=== PATIENT | female | born 1960 | race African-American/Black ===

== ENCOUNTER 2018-10-25 19:10 | Emergency (ER) | payer OTHER ==
[2018-10-25 19:38] VITALS: BP 149/85; PULSE 95; TEMP 99; BMI 35.9
--- NOTE | 2018-10-25 19:40 | PDOC ---
Rapid Medical Evaluation Chief Complaint: Chest Pain Time Seen by Provider: 10/25/18 19:32 Medical Evaluation: Allergies Allergy/AdvReac Type Severity Reaction Status Date / Time No Known Allergies Allergy Verified 12/25/14 16:07 10/25/18 19:35I have performed a brief in-person evaluation of this patient. The patient presents with a chief complaint of: Cp/ worse with cough, Phlegm/ yellow thick- some relief with Robutussin . Pertinent physical exam findings: pale/ moist cough/ HIV- with no detected viral load I have ordered the following: CXR The patient will proceed to the ED for further evaluation. 10/25/18 19:41 Discharge Disposition - Diagnosis Cough - Referrals - Patient Instructions - Post Discharge Activity
--- NOTE | 2018-10-25 20:19 | PDOC ---
History of Present Illness - General Chief Complaint: Chest Pain Stated Complaint: CHEST PAIN Time Seen by Provider: 10/25/18 19:32 History Source: Patient Exam Limitations: No Limitations - History of Present Illness Initial Comments: 58 yo F w a pmh of HIV - on HAART undetectable viral load, normal CD4 count, HTN , and HCL presents to the ER with 3 days of a cough which was originally dry but turned productive. The patient endorses 3 episodes of the chills today. The patient states that when she coughs her right chest and lower back hurts. She states she has also been experiencing occasional shortness of breath and some increased difficulty breathing. The patient denies any nausea, vomiting, diaphoresis, chest pain worsened by physical activity, or recent fevers. PCP: Kandi Cohn PSH: None reported Allergies: NKA, NKDA Social Hx: Denies smoking, drinking, or other substance usage. Past History - Past Medical History Allergies/Adverse Reactions: Allergies Allergy/AdvReac Type Severity Reaction Status Date / Time No Known Allergies Allergy Verified 10/25/18 19:38 Home Medications: Ambulatory Orders Abacavir/Dolutegravir/Lamivudi [Triumeq 600-50-300 mg Tablet] 1 each PO DAILY # 30 tablet 10/16/18 Aspirin [Aspirin EC] 1 tab PO DAILY #30 tablet. 10/16/18 Atorvastatin Ca [Lipitor] 1 tab PO DAILY #30 tablet 10/16/18 Blood Pressure Test Kit [Blood Pressure Kit] 1 each ASDIR #1 kit 10/16/18 Gabapentin [Neurontin -] 1 tab PO HS #30 capsule 10/16/18 Multivitamin,Therapeutic [Thera] 1 each PO DAILY #30 tablet 10/16/18 [place]-3 Fatty Acids [[place]-3] 1,000 mg PO BID #60 capsule 10/16/18 Ranitidine [Zantac -] 150 mg PO DAILY PRN #30 tablet MDD 1 10/16/18 Tenofovir Disoproxil Fumarate [Viread -] 300 mg PO DAILY #30 tablet 10/16/18 Triamcinolone 0.1% Ointment [Aristocort 0.1% Ointment -] 1 applic TP BID #1 tube 10/16/18 Valacyclovir HCl [Valtrex -] 500 mg PO BID #10 tablet 10/16/18 Cholecalciferol (Vitamin D3) [D3-50] 1 cap PO WEEKLY #4 capsule 10/18/18 Ibuprofen 1 tab PO BID PRN #30 tablet MDD 2 10/18/18 Guaifenesin Dm [Robitussin Dm -] 10 ml PO Q6H #1 bottle 10/23/18 Anemia: Yes Asthma: No Cancer: No Cardiac Disorders: No CVA: No COPD: No CHF: No Dementia: No Diabetes: No GI Disorders: No Disorders: Yes (genital herpes) HTN: No Hypercholesterolemia: No Liver Disease: No Seizures: No Thyroid Disease: No - Suicide/Smoking/Psychosocial Hx Smoking History: Never smoked Have you smoked in the past 12 months: No Cigars Per Day: 0 Information on smoking cessation initiated: No Hx Alcohol Use: No Drug/Substance Use Hx: No Substance Use Type: None Hx Substance Use Treatment: No Review of Systems - Review of Systems Able to Perform ROS?: Yes Comments:: CONSTITUTIONAL: Present: chills Absent: fever, no fatigue EYES: Absent: visual changes ENT: Absent: ear pain, no sore throat CARDIOVASCULAR: Present: Chest pain Absent: no palpitations RESPIRATORY: Present: cough, no SOB GI: Absent: abdominal pain, no nausea, no vomiting, no constipation, no diarrhea GENITOURINARY: Absent: dysuria, no frequency, no hematuria MUSKULOSKELETAL: Absent: back pain, no arthralgia, no myalgia SKIN: Absent: rash NEURO: Absent: headache *Physical Exam - Vital Signs Last Vital Signs Temp Pulse Resp BP Pulse Ox 99 F 95 H 18 149/85 100 10/25/18 19:34 10/25/18 19:34 10/25/18 19:34 10/25/18 19:34 10/25/18 19:34 - Physical Exam Comments: GENERAL: Well-appearing, well-nourished. No apparent distress. HEENT: Normocephalic, atraumatic. PERRL, EOM intact. CARDIOVASCULAR: Normal S1, S2. Regular rate and rhythm. PULMONARY: Mild right lower lobe wheezes. No evidence of respiratory distress. No rales or rhonchi. ABDOMEN: Soft, non-distended, non-tender. EXTREMITIES: Normal ROM in all four extremities. No gross deformities. SKIN: Warm, dry. No rash NEUROLOGICAL: No focal neurological deficits. ED Treatment Course - LABORATORY CBC & Chemistry Diagram: 10/25/18 20:31 10/25/18 20:23 Medical Decision Making - Medical Decision Making 58 yo F w a pmh of HIV - on HAART undetectable viral load, normal CD4 count, HTN , and HCL presents to the ER with 3 days of a cough which was originally dry but turned productive. The patient endorses 3 episodes of the chills today. The patient states that when she coughs her right chest and lower back hurts. She states she has also been experiencing occasional shortness of breath and some increased difficulty breathing. The patient denies any nausea, vomiting, diaphoresis, chest pain worsened by physical activity, or recent fevers. Vital Signs Temp Pulse Resp BP Pulse Ox 99 F 95 H 18 149/85 100 10/25/18 19:34 10/25/18 19:34 10/25/18 19:34 10/25/18 19:34 10/25/18 19:34 DDx IBNLT: PNA vs URI, pneumothorax, ACS/RI, angina Plan: Labs, CXR, EKG, duonebs, +/- Abx, IV hydration, re-assess. Labs unremarkable. CXR shows enlarged mediastynum - Will obtain a CTA to rule out dissection/aneurysm - If CTA negative I believe patient can be discharged w PCP follow up Signing patient out to Dr. Chun for further care and disposition. *DC/Admit/Observation/Transfer Diagnosis at time of Disposition: Cough - Referrals - Patient Instructions - Post Discharge Activity
[2018-10-25] MEDS ORDERED: SODIUM CHLORIDE 1,000 ML IV STA (20:20)
[2018-10-25] MEDS ORDERED: ALBUTEROL SO4 2.5/IPRATROPIUM 0.5 INH SOL 3 ML VIAL.NEB. NEB ONE ×2 (20:21→21:46)
[2018-10-25 20:56] LABS: BASO % 0.6 % (0-2.0); EOS % 4.3 % (0-4.5); HEMATOCRIT 35.9 % (32.4-45.2); HEMOGLOBIN 12.2 GM/dL (10.7-15.3); MCH 30.5 pg (25.7-33.7); MCHC 34.1 g/dl (32.0-36.0); MEAN CELL VOLUME 89.6 fl (80-96); MEAN PLT VOLUME 9.6 fl (7.5-11.1); MONO % 9.7 % (3.8-10.2); NEUT % 64.4 % (42.8-82.8); PLATELET COUNT 153 K/MM3 (134-434); RDW 13.3 % (11.6-15.6); WHITE BLOOD COUNT 5.4 K/mm3 (4.0-10.0)
[2018-10-25 21:23] LABS: ALBUMIN 3.5 g/dl (3.4-5.0); BILIRUBIN,TOTAL 0.6 mg/dL (0.2-1); BLOOD UREA NITROGEN 6.6 mg/dL (7-18); CALCIUM 8.5 mg/dL (8.5-10.1); POTASSIUM 3.8 mmol/L (3.5-5.1); TOT PROT 8.6 g/dl (6.4-8.2)
[2018-10-25] MEDS ORDERED: methylPREDNISolone NA SUCC 125 MG/2 ML VIAL IVPUSH ONE (21:43)
[2018-10-25] MEDS ORDERED: methylPREDNISolone NA SUCC 125 MG/2 ML VIAL ONE (21:47)
--- NOTE | 2018-10-26 00:15 | PDOC ---
*Physical Exam - Vital Signs Last Vital Signs Temp Pulse Resp BP Pulse Ox 99 F 95 H 18 149/85 100 10/25/18 19:34 10/25/18 19:34 10/25/18 19:34 10/25/18 19:34 10/25/18 19:34 - Physical Exam Comments: GENERAL: Awake, alert, and oriented to person/place/time, in no acute distress HEAD: No signs of trauma, normocephalic, atraumatic EYES: PERRLA, EOMI, sclera anicteric, conjunctiva clear EXTREMITIES: Normal inspection, Normal range of motion, no edema. No clubbing or cyanosis NEUROLOGICAL: Cranial nerves II through XII grossly intact. Normal speech, normal gait, no focal sensorimotor deficits SKIN: Warm, Dry ED Treatment Course - LABORATORY CBC & Chemistry Diagram: 10/25/18 20:31 10/25/18 20:23 - ADDITIONAL ORDERS Additional order review: Laboratory Results 10/25/18 10/25/18 20:31 20:23 Sodium 140 Potassium 3.8 Chloride 106 Carbon Dioxide 29 Anion Gap 5 L BUN 6.6 L Creatinine 1.0 Est GFR (CKD-EPI)AfAm 71.92 Est GFR (CKD-EPI)NonAf 62.05 Random Glucose 124 H Calcium 8.5 Total Bilirubin 0.6 AST 15 ALT 13 Alkaline Phosphatase 91 Troponin I < 0.02 Total Protein 8.6 H Albumin 3.5 10/25/18 20:31 RBC 4.00 MCV 89.6 MCHC 34.1 RDW 13.3 MPV 9.6 Neutrophils % 64.4 D Lymphocytes % 21.0 D Monocytes % 9.7 Eosinophils % 4.3 Basophils % 0.6 - RADIOLOGY Radiology Studies Ordered: Category Date Time Status ABDOMEN CTA W/WO CONTRAST [CT] Stat CT Scan 10/25/18 22:38 Taken - Medications Given in the ED: ED Medications Discontinued Medications Generic Name Dose Route Start Last Admin Trade Name Freq PRN Reason Stop Dose Admin Albuterol/Ipratropium 3 amp 10/25/18 20:21 10/25/18 21:52 Duoneb - NEB 10/25/18 20:22 3 amp ONCE ONE Administration Sodium Chloride 1,000 mls @ 1,000 mls/hr 10/25/18 20:20 10/25/18 21:52 Normal Saline - IV 10/25/18 21:19 1,000 mls/hr ASDIR STA Administration Methylprednisolone Sodium Succinate 125 mg 10/25/18 21:43 10/25/18 21:52 Solu-Medrol - IVPUSH 10/25/18 21:44 125 mg ONCE ONE Administration Medical Decision Making - Medical Decision Making Pt received as sign out from Dr. Espitia Pt presented for cough, wheezing, and was noted to have a widened mediastinum on CXR CTA negative for aortic aneurysm or dissection Plan for D/C w/ PCP f/u Discharge instructions and return precautions given Pt in agreement and verbalized understanding Rx for steroids, abx, and an inhaler sent to pt's pharmacy Dispo: home *DC/Admit/Observation/Transfer Diagnosis at time of Disposition: Cough - Discharge Dispostion Disposition: HOME Condition at time of disposition: Stable Decision to Admit order: No - Prescriptions Prescriptions: Albuterol Sulfate Inhaler - [Ventolin Hfa Inhaler -] 2 puff IH Q4H PRN #1 inhaler PRN Reason: Wheezing Azithromycin [Zithromax 250mg Tablets -] 250 mg PO UTDICT #6 tab Methylprednisolone [Medrol Dose Adolfo] 4 mg PO ASDIR #21 tablet - Referrals Referrals: Cyndie Mistry MD [Primary Care Provider] - - Patient Instructions Printed Discharge Instructions: DI for Cough -- Adult Additional Instructions: You were seen in the Emergency Department for evaluation of cough. Your imaging and labs were unremarkable. Review the handout provided at discharge. Follow up with your primary care provider. Return to the Emergency Department if you develop fevers/chills, vision changes, chest pain trouble breathing, nausea, worsening symptoms, or any new/concerning symptoms. Prescriptions were sent to the pharmacy you specified, take as directed. - Post Discharge Activity
--- NOTE | 2018-10-26 00:43 | PDOC ---
Documentation entered by Helga Gandhi SCRIBE, acting as scribe for Janice Martinez DO. Janice Martinez DO: This documentation has been prepared by the Oksana cavanaugh Adrianna, SCRIBE, under my direction and personally reviewed by me in its entirety. I confirm that the documentation accurately reflects all work, treatment, procedures, and medical decision making performed by me. Attending Attestation - Resident Resident Name: Clifton Ying - ED Attending Attestation I have performed the following: I have examined & evaluated the patient, The case was reviewed & discussed with the resident, I agree w/resident's findings & plan - HPI HPI: The patient is a 58 year old female, with a significant PMH of HIV (on HAART undetectable viral load and normal CD4 count), HTN, and HCL, , who presents to the ED for evaluation of cough for 3 days. Patient notes that the cough originated as dry but is now productive. Patient notes that coughing induced right chest and low back pain. She reports associated chills that began today, SOB, and labored breathing. PCP: Kandi Cohn PSH: None reported Allergies: NKA, NKDA Social Hx: Denies smoking, drinking, or other substance usage. 10/25/18 20:56 - Physicial Exam PE: Agree with resident exam. 10/25/18 20:56 - Medical Decision Making 10/26/18 00:42 58-year-old female with cough and wheezing Chest x-ray showed no obvious infiltrate, mediastinal was widened On repeat questioning patient states that she has been having some chest pain intermittently CTA did show a tortuous thoracic aorta with no aneurysmal dilatation or dissection Patient improved after duo nebs and steroids She will be discharged with a Z-Adolfo, Medrol Dosepak and Ventolin inhaler
--- NOTE | 2018-10-26 16:31 | EKG ---
Test Reason : Blood Pressure : / mmHG Vent. Rate : 089 BPM Atrial Rate : 089 BPM P-R Int : 174 ms QRS Dur : 088 ms QT Int : 378 ms P-R-T Axes : 058 015 030 degrees QTc Int : 459 ms NORMAL SINUS RHYTHM MINIMAL VOLTAGE CRITERIA FOR LVH, MAY BE NORMAL VARIANT NONSPECIFIC T WAVE ABNORMALITY ABNORMAL ECG WHEN COMPARED WITH ECG OF 20-JUN-2018 11:37, ST NO LONGER ELEVATED IN LATERAL LEADS NONSPECIFIC T WAVE ABNORMALITY NOW EVIDENT IN LATERAL LEADS Confirmed by KRYS LESTER MD ([id number]) on 10/26/2018 4:30:38 PM Referred By: Confirmed By:KRYS LESTER MD
== END 2018-10-26 00:32 | disposition home or self-care (01) ==
LOC: JER 19:10
PROC: 3E0F7GC Introduction of Other Therapeutic Substance into Respiratory Tract, Via Natural or Artificial Opening (ICD-10-PCS; principal; 2018-10-25)
PROC: 3E0337Z Introduction of Electrolytic and Water Balance Substance into Peripheral Vein, Percutaneous Approach (ICD-10-PCS; 2018-10-25)
PROC: 3E0333Z Introduction of Anti-inflammatory into Peripheral Vein, Percutaneous Approach (ICD-10-PCS; 2018-10-25)
DX: R05 Cough (principal); I10 Essential (primary) hypertension; E78.00 Pure hypercholesterolemia, unspecified; Z21 Asymptomatic human immunodeficiency virus [HIV] infection status
CPT/HCPCS: 36415; 71046-TC-FY; 71275-TC; 74175-TC; 80053; 84484; 85025; 93005; 93010; 99282-25; J7030

== ENCOUNTER 2018-10-27 07:13 | Inpatient (IN) | payer OTHER ==
--- NOTE | 2018-10-27 07:30 | PDOC ---
History of Present Illness - General Chief Complaint: Shortness of Breath Stated Complaint: DIFFICULTY BREATHING Time Seen by Provider: 10/27/18 07:30 History Source: Patient Exam Limitations: No Limitations - History of Present Illness Initial Comments: 10/27/18 07:50 58 year old female with PMH HTN, HLD, HIV (CD4 200s, on HAART, follows at [facility]) presented to ED for shortness of breath x6 days. Pt was seen and evaluated at [facility] ED, had CT chest with contrast, was told all testing was normal, but was admitted for BISHOP. Pt then signed out AMA this AM because she prefers this hospital. Pt admitted to productive yellow cough and fever x1 x6 days. Past History - Past Medical History Allergies/Adverse Reactions: Allergies Allergy/AdvReac Type Severity Reaction Status Date / Time No Known Allergies Allergy Verified 10/27/18 07:31 Home Medications: Ambulatory Orders Abacavir/Dolutegravir/Lamivudi [Triumeq 600-50-300 mg Tablet] 1 each PO DAILY # 30 tablet 10/16/18 Aspirin [Aspirin EC] 1 tab PO DAILY #30 tablet. 10/16/18 Atorvastatin Ca [Lipitor] 1 tab PO DAILY #30 tablet 10/16/18 Blood Pressure Test Kit [Blood Pressure Kit] 1 each ASDIR #1 kit 10/16/18 Gabapentin [Neurontin -] 1 tab PO HS #30 capsule 10/16/18 Multivitamin,Therapeutic [Thera] 1 each PO DAILY #30 tablet 10/16/18 [place]-3 Fatty Acids [[place]-3] 1,000 mg PO BID #60 capsule 10/16/18 Ranitidine [Zantac -] 150 mg PO DAILY PRN #30 tablet MDD 1 10/16/18 Tenofovir Disoproxil Fumarate [Viread -] 300 mg PO DAILY #30 tablet 10/16/18 Triamcinolone 0.1% Ointment [Aristocort 0.1% Ointment -] 1 applic TP BID #1 tube 10/16/18 Valacyclovir HCl [Valtrex -] 500 mg PO BID #10 tablet 10/16/18 Cholecalciferol (Vitamin D3) [D3-50] 1 cap PO WEEKLY #4 capsule 10/18/18 Ibuprofen 1 tab PO BID PRN #30 tablet MDD 2 10/18/18 Guaifenesin Dm [Robitussin Dm -] 10 ml PO Q6H #1 bottle 10/23/18 Azithromycin [Zithromax 250mg Tablets -] 250 mg PO UTDICT #6 tab 10/26/18 Methylprednisolone [Medrol Dose Adolfo] 4 mg PO ASDIR #21 tablet 10/26/18 Anemia: Yes Asthma: No Cancer: No Cardiac Disorders: No CVA: No COPD: No CHF: No Dementia: No Diabetes: No GI Disorders: No Disorders: Yes (genital herpes) HTN: No Hypercholesterolemia: No Liver Disease: No Seizures: No Thyroid Disease: No - Suicide/Smoking/Psychosocial Hx Smoking History: Never smoked Have you smoked in the past 12 months: No Cigars Per Day: 0 Hx Alcohol Use: No Drug/Substance Use Hx: No Substance Use Type: None Hx Substance Use Treatment: No Review of Systems - Review of Systems Able to Perform ROS?: Yes Comments:: 10/27/18 07:49 General: admitted to fever, chills, generalized weakness. HEENT: denied sore throat, rhinorrhea, ear pain. Heart: denied chest pain, palpitations, syncope, diaphoresis. Respiratory: admitted to shortness of breath, cough, sputum production. denied hemoptysis. Abdomen: denied abdominal pain, nausea, vomiting, diarrhea, constipation, blood in stool. : denied dysuria, increased urinary frequency, hematuria, urinary incontinence , flank pain. Back: denied back pain. Musculoskeletal: denied joint pain, muscle pain, joint swelling. Neurological: denied headache, dizziness, numbness, tingling, weakness. Skin: denied rash, laceration, abrasion. *Physical Exam - Physical Exam Comments: 10/27/18 07:50 Constitutional: Well-nourished, Well-developed, appearing stated age. HEENT: head is normocephalic, atraumatic. EOMI. PERRLA. Neck: supple. Full ROM. Heart: regular rhythm. no murmurs, rubs or gallops. Lungs: clear to auscultation bilaterally. no crackles, rhonchi or wheezing. no stridor. Abdomen: soft, nontender. normal bowel sounds. no rebound, guarding, masses. Extremities: peripheral pulses intact. 2+ pitting edema to bilateral LE. Neurological: CN 2-12 grossly intact. moves all four extremities. Psych: awake, alert, oriented x3. follows commands. answers questions appropriately. ED Treatment Course - LABORATORY CBC & Chemistry Diagram: 10/27/18 07:36 10/27/18 07:36 Medical Decision Making - Medical Decision Making 10/27/18 07:47 58 year old female with PMH HTN, HLD, HIV (CD4 200s) presented to ED for shortness of breath associated with yellow productive cough. Pt was seen and evaluated at [facility] ED, had CT chest with contrast, was told all testing was normal, but was admitted for BISHOP. Pt then signed out AMA this AM because she prefers this hospital. Initial Vital Signs Temp Pulse Resp BP Pulse Ox 99.5 F 108 H 16 153/85 100 10/27/18 07:27 10/27/18 07:27 10/27/18 07:27 10/27/18 07:27 10/27/18 07:27 Borderline temperature -Pending rectal temp Tachycardic No tachypnea Mild hypertension No hypoxia on room air Labs ordered: CBC, CMP, mag, BNP, trop, VBG, PT/PTT/INR Imaging ordered: CXR Medications ordered: ASA 162 mg PO chew once, normal saline bolus 1000 cc EKG performed at 0730: rate 107, regular rhythm, normal axis, normal intervals, flat T II/aVF/V6, flipped T V3/V4. 10/27/18 08:19 Vital Signs Temperature 102.9 F H 10/27/18 07:48 febrile by rectal temperature Labs ordered: blood cultures, UA/UC 10/27/18 08:37 CBC WBC 5.7 K/mm3 (4.0-10.0) 10/27/18 07:36 RBC 3.68 M/mm3 (3.60-5.2) 10/27/18 07:36 Hgb 11.3 GM/dL (10.7-15.3) 10/27/18 07:36 Hct 32.4 % (32.4-45.2) 10/27/18 07:36 MCV 87.8 fl (80-96) 10/27/18 07:36 MCH 30.6 pg (25.7-33.7) 10/27/18 07:36 MCHC 34.8 g/dl (32.0-36.0) 10/27/18 07:36 RDW 13.2 % (11.6-15.6) 10/27/18 07:36 Plt Count 156 K/MM3 (134-434) 10/27/18 07:36 MPV 9.6 fl (7.5-11.1) 10/27/18 07:36 Absolute Neuts (auto) 4.1 K/mm3 (1.5-8.0) 10/27/18 07:36 Neutrophils % 72.0 % (42.8-82.8) 10/27/18 07:36 Lymphocytes % 20.0 % (8-40) 10/27/18 07:36 Monocytes % 6.9 % (3.8-10.2) 10/27/18 07:36 Eosinophils % 0.7 % (0-4.5) D 10/27/18 07:36 Basophils % 0.4 % (0-2.0) 10/27/18 07:36 Nucleated RBC % 0 % (0-0) 10/27/18 07:36 No leukocytosis. No anemia. INR, PTT INR 1.08 (0.83-1.09) 10/27/18 07:36 Respiratory alkalosis on VGB. 10/27/18 08:48 CMP Sodium 138 mmol/L (136-145) 10/27/18 07:36 Potassium y 3.2 mmol/L (3.5-5.1) L 10/27/18 07:36 Chloride 105 mmol/L (98-107) 10/27/18 07:36 Carbon Dioxide 27 mmol/L (21-32) 10/27/18 07:36 Anion Gap 6 MMOL/L (8-16) L 10/27/18 07:36 BUN 7.0 mg/dL (7-18) 10/27/18 07:36 Creatinine 0.9 mg/dL (0.55-1.3) 10/27/18 07:36 Est GFR (CKD-EPI)AfAm 81.69 10/27/18 07:36 Est GFR (CKD-EPI)NonAf 70.48 10/27/18 07:36 Random Glucose 115 mg/dL (74-106) H 10/27/18 07:36 Calcium 8.3 mg/dL (8.5-10.1) L 10/27/18 07:36 Magnesium 2.3 mg/dL (1.8-2.4) 10/27/18 07:36 Total Bilirubin 0.7 mg/dL (0.2-1) 10/27/18 07:36 AST 17 U/L (15-37) 10/27/18 07:36 ALT 13 U/L (13-61) 10/27/18 07:36 Alkaline Phosphatase 82 U/L (45-117) 10/27/18 07:36 Troponin I < 0.02 ng/ml (0.00-0.05) 10/27/18 07:36 B-Natriuretic Peptide 73.8 pg/ml (5-125) 10/27/18 07:36 Total Protein 8.5 g/dl (6.4-8.2) H 10/27/18 07:36 Albumin 3.6 g/dl (3.4-5.0) 10/27/18 07:36 Hypokalemia. No PATRICK. No transaminitis. Troponin wnl BNP wnl Medications ordered: KCL 40 mEq PO once 10/27/18 08:52 I spoke with [facility] ED Physician about the patient, they reported the following about her visit: -Nebulizer -Medrol dose pack prescribed -Azithromycin prescribed -CXR: negative for infiltrate -K 3.1, KCL 40 mEq given -CBC normal -VBG - PCO2 57 -Troponin normal 10/27/18 09:12 Pt informed of results. Pt walked with SpO2, will desaturate from 92% on room air to 88% on room air with ambulation. CXR shows no clear infiltrate. ID paged for recs. 10/27/18 11:17 ID paged multiple times. IM team informed no response yet. 10/28/18 08:04 Follow up: Official CXR report: Chest: Shortness of breath Single view of the chest is submitted. Since 10/25/2018 again noted is the prominent mediastinum with clear lungs and sharp angles. The bones and soft tissues are intact. Impression: No acute chest pathology. Reported By: Sukumar Ken MD 10/27/18 1114 *DC/Admit/Observation/Transfer Diagnosis at time of Disposition: Hypokalemia, BISHOP (dyspnea on exertion), History of HIV infection - Discharge Dispostion Condition at time of disposition: Stable Decision to Admit order: Yes - Referrals - Patient Instructions - Post Discharge Activity
[2018-10-27] MEDS ORDERED: ASPIRIN 81 MG CHEWABLE TABLETS PO ONE (07:51)
[2018-10-27] MEDS ORDERED: SODIUM CHLORIDE 1,000 ML IV STA (07:51)
[2018-10-27] MEDS ORDERED: ACETAMINOPHEN 1000 MG/100 ML VIAL (NON FORMULARY) IVPB ONE (07:51)
[2018-10-27] MEDS ORDERED: ACETAMINOPHEN INJECTION 100 ML IVPB ONE (07:55)
[2018-10-27] MEDS ORDERED: ASPIRIN 81 MG CHEWABLE TABLETS ONE (07:55)
[2018-10-27 08:01] LABS: VENOUS PH 7.44 (7.31-7.41); VENOUS PO2 48.7 mmHg (30-40)
[2018-10-27 08:12] LABS: BASO % 0.4 % (0-2.0); EOS % 0.7 % (0-4.5); HEMATOCRIT 32.4 % (32.4-45.2); HEMOGLOBIN 11.3 GM/dL (10.7-15.3); MCH 30.6 pg (25.7-33.7); MCHC 34.8 g/dl (32.0-36.0); MEAN CELL VOLUME 87.8 fl (80-96); MEAN PLT VOLUME 9.6 fl (7.5-11.1); MONO % 6.9 % (3.8-10.2); PLATELET COUNT 156 K/MM3 (134-434); RBC 3.68 M/mm3 (3.60-5.2); RDW 13.2 % (11.6-15.6); WHITE BLOOD COUNT 5.7 K/mm3 (4.0-10.0)
--- NOTE | 2018-10-27 08:27 | PDOC ---
Attending Attestation - Resident Resident Name: JudyGena - ED Attending Attestation I have performed the following: I have examined & evaluated the patient, The case was reviewed & discussed with the resident, I agree w/resident's findings & plan, Exceptions are as noted - HPI HPI: 58 yo F history HTN, HL, HIC (last CD4 238 at [facility]) presents with SOB for past 6 days. She was evaluated in this ED with labs, CXR, CTA. She was prescribed steroids, inhaler, and azithromycin, which she did not yet fill at the pharmacy. She presented to [facility], had a similar workup, but at that point, she was worsening with exertion. They recommended admission, however, she prefers this hospital as she follows at the [facility], so she signed out AMA. She has had PCP in the past. - Physicial Exam PE: GENERAL: Awake, alert, and fully oriented, in no acute distress HEAD: No signs of trauma EYES: PERRLA, EOMI, sclera anicteric, conjunctiva clear ENT: Auricles normal inspection, hearing grossly normal, nares patent, oropharynx clear without exudates. Moist mucosa NECK: Normal ROM, supple, no lymphadenopathy, JVD, or masses LUNGS: Dec air entry B/L, scatterec exp wheezes R lung ramsey. HEART: Regular rate and rhythm, normal S1 and S2, no murmurs, rubs or gallops ABDOMEN: Soft, nontender, normoactive bowel sounds. No guarding, no rebound. No masses EXTREMITIES: Normal range of motion, no edema. No clubbing or cyanosis. No cords, erythema, or tenderness NEUROLOGICAL: Cranial nerves II through XII grossly intact. Normal speech. Motor and sensation intact SKIN: Warm, Dry, normal turgor, no rashes or lesions noted. - Medical Decision Making Pt with history of HIV, CD4 238, presenting with exertional SOB, productive cough. As her CD4 count is borderline and she desats with ambulation, concern for PCP. Will d/w ID. Will admit.
[2018-10-27 08:28] LABS: INR 1.08 (0.83-1.09); PROTHROMBIN TIME (PATIENT) 12.8 SEC (9.7-13.0)
[2018-10-27 08:31] LABS: ACTIVATED PTT 27.3 SECONDS (25.2-36.5)
[2018-10-27 08:37] LABS: ALBUMIN 3.6 g/dl (3.4-5.0); ALK PHOS 82 U/L (45-117); ANION GAP 6 MMOL/L (8-16); BILIRUBIN,TOTAL 0.7 mg/dL (0.2-1); CALCIUM 8.3 mg/dL (8.5-10.1); CHLORIDE 105 mmol/L (98-107); CO2 27 mmol/L (21-32); CREATININE 0.9 mg/dL (0.55-1.3); GLUCOSE,RANDOM 115 mg/dL (74-106); MAGNESIUM 2.3 mg/dL (1.8-2.4); N-TERMINAL BNP 73.8 pg/ml (5-125); POTASSIUM 3.2 mmol/L (3.5-5.1); SGOT/AST 17 U/L (15-37); SGPT/ALT 13 U/L (13-61); SODIUM 138 mmol/L (136-145); TOT PROT 8.5 g/dl (6.4-8.2)
[2018-10-27] MEDS ORDERED: POTASSIUM CHLORIDE TABS 10 MEQ TABLET.ER (FP) PO ONE (08:48)
[2018-10-27] MEDS ORDERED: POTASSIUM CHLORIDE TABS 20 MEQ TABLET.ER (FP) PO ONE (09:00)
[2018-10-27] MEDS ORDERED: POTASSIUM CHLORIDE ORAL LIQUID 20 MEQ/15 ML PO ONE (09:03)
[2018-10-27] MEDS ORDERED: POTASSIUM CHLORIDE ORAL LIQUID 20 MEQ/15 ML ONE (09:12)
--- NOTE | 2018-10-27 10:11 | HP ---
Admitting History and Physical - Primary Care Physician PCP: Cyndie Mistry - Admission Chief Complaint: SOB, fever, yellow sputum History of Present Illness: 58 year old female with PMH HTN, HLD, HIV (CD4 200s, on HAART, follows at [facility]) presented to ED for shortness-report to ED physician x6 days, however to now reporting since Tuesday Pt was seen and evaluated in [facility] ED tuesday , CTA done and neagtive and given rx for steroids, ABX, and inhaled bronchodilators which she did not fill and again seen at [facility] ED this am via ambulance. CTA was repeated which she reported as normal, but was admitted for BISHOP. Pt then signed out AMA this AM and daughters brought her here. In ED post ambulation stats decreased to 88% on RA. History Source: Patient, Family Member (daughter) Limitations to Obtaining History: No Limitations - Past Medical History Cardiovascular: Yes: HTN, Hyperlipdemia Infectious Disease: Yes: HIV, Other (genital herpes) - Smoking History Smoking history: Former smoker Have you smoked in the past 12 months: No - Alcohol/Substance Use Hx Alcohol Use: No - Social History Usual Living Arrangement: Yes: With Child History of Recent Travel: No Home Medications - Allergies Allergies/Adverse Reactions: Allergies Allergy/AdvReac Type Severity Reaction Status Date / Time No Known Allergies Allergy Verified 10/27/18 07:31 - Home Medications Home Medications: Ambulatory Orders Abacavir/Dolutegravir/Lamivudi [Triumeq 600-50-300 mg Tablet] 1 each PO DAILY # 30 tablet 10/16/18 Aspirin [Aspirin EC] 1 tab PO DAILY #30 tablet. 10/16/18 Atorvastatin Ca [Lipitor] 1 tab PO DAILY #30 tablet 10/16/18 Blood Pressure Test Kit [Blood Pressure Kit] 1 each ASDIR #1 kit 10/16/18 Gabapentin [Neurontin -] 1 tab PO HS #30 capsule 10/16/18 Multivitamin,Therapeutic [Thera] 1 each PO DAILY #30 tablet 10/16/18 [place]-3 Fatty Acids [[place]-3] 1,000 mg PO BID #60 capsule 10/16/18 Ranitidine [Zantac -] 150 mg PO DAILY PRN #30 tablet MDD 1 10/16/18 Tenofovir Disoproxil Fumarate [Viread -] 300 mg PO DAILY #30 tablet 10/16/18 Triamcinolone 0.1% Ointment [Aristocort 0.1% Ointment -] 1 applic TP BID #1 tube 10/16/18 Valacyclovir HCl [Valtrex -] 500 mg PO BID #10 tablet 10/16/18 Cholecalciferol (Vitamin D3) [D3-50] 1 cap PO WEEKLY #4 capsule 10/18/18 Ibuprofen 1 tab PO BID PRN #30 tablet MDD 2 10/18/18 Guaifenesin Dm [Robitussin Dm -] 10 ml PO Q6H #1 bottle 10/23/18 Azithromycin [Zithromax 250mg Tablets -] 250 mg PO UTDICT #6 tab 10/26/18 Methylprednisolone [Medrol Dose Adolfo] 4 mg PO ASDIR #21 tablet 10/26/18 Family Disease History - Family Disease History Family Disease History: Diabetes: Mother, Other: Grandparent (alzheimers), Father Review of Systems - Review of Systems Constitutional: reports: Fever Eyes: reports: No Symptoms HENT: reports: No Symptoms Neck: reports: No Symptoms Cardiovascular: reports: No Symptoms Respiratory: reports: SOB, SOB on Exertion Gastrointestinal: reports: No Symptoms Genitourinary: reports: No Symptoms Breasts: reports: No Symptoms Reported Musculoskeletal: reports: No Symptoms Integumentary: reports: No Symptoms Neurological: reports: No Symptoms Endocrine: reports: No Symptoms Hematology/Lymphatic: reports: No Symptoms Psychiatric: reports: No Symptoms Physical Examination Vital Signs: Vital Signs Temperature 99.3 F 10/27/18 09:47 Pulse Rate 108 H 10/27/18 07:27 Respiratory Rate 16 10/27/18 07:27 Blood Pressure 153/85 10/27/18 07:27 O2 Sat by Pulse Oximetry (%) 100 10/27/18 07:27 Constitutional: Yes: Well Nourished, No Distress, Calm Eyes: Yes: WNL, Conjunctiva Clear, EOM Intact HENT: Yes: WNL, Atraumatic, Normocephalic Neck: Yes: WNL, Supple, Trachea Midline Cardiovascular: Yes: WNL, Regular Rate and Rhythm Respiratory: Yes: WNL, Regular, CTA Bilaterally, Diminished (at bases), SOB on Exertion Gastrointestinal: Yes: WNL, Normal Bowel Sounds, Soft ...Rectal Exam: Yes: Deferred Renal/: Yes: WNL Musculoskeletal: Yes: WNL Extremities: Yes: WNL Edema: No Peripheral Pulses WNL: Yes Integumentary: Yes: WNL Neurological: Yes: WNL, Alert, Oriented ...Motor Strength: WNL Psychiatric: Yes: WNL, Alert, Oriented Labs: CBC, BMP 10/27/18 07:36 10/27/18 07:36 Imaging - Results Chest X-ray: Report Reviewed, Image Reviewed (no infiltrates, small pleural effusion to right) Cat Scan: Report Reviewed (10/25 negative for PE, no lung pathology) Problem List - Problems (1) Prophylactic measure Assessment/Plan: FEN regular diet monitor electrolytes and replete as needed No need for IVF at this time unless remains febrile Proph ambulation ad ninfa, no chemical anticoagulation PPI while on steroids Dispo maintain as in patient full code discharge planning Code(s): Z29.9 - ENCOUNTER FOR PROPHYLACTIC MEASURES, UNSPECIFIED (2) Hyperlipidemia Assessment/Plan: continue home dose of lipitor low cholesterol diet Code(s): E78.5 - HYPERLIPIDEMIA, UNSPECIFIED (3) HTN (hypertension) Assessment/Plan: no antihypertensive at this time monitor BP Code(s): I10 - ESSENTIAL (PRIMARY) HYPERTENSION (4) BISHOP (dyspnea on exertion) Assessment/Plan: supplemental O2 as need inhaled bronchodilators incentive spirometry Lung exam unremarkable, will hold on steroids at this time Pulmonary consult requested continue azithromycin ID consult requested Code(s): R06.09 - OTHER FORMS OF DYSPNEA (5) History of HIV infection Assessment/Plan: continue HAART PCP unlikely given negative CT Code(s): B20 - HUMAN IMMUNODEFICIENCY VIRUS [HIV] DISEASE (6) Hypokalemia Assessment/Plan: replete K as needed daily CMP Code(s): E87.6 - HYPOKALEMIA (7) Cough Assessment/Plan: guiaffesin as needed incentive spirometry Code(s): R05 - COUGH (8) Fever Assessment/Plan: T 101 Blood and urine cultures sent will send legionella antigen IVF if remains febrile Tylenol PRN Code(s): R50.9 - FEVER, UNSPECIFIED Visit type - Emergency Visit Emergency Visit: Yes ED Registration Date: 10/27/18 Care time: The patient presented to the Emergency Department on the above date and was hospitalized for further evaluation of their emergent condition. - New Patient This patient is new to me today: Yes Date on this admission: 10/27/18 - Critical Care Critical Care patient: No
[2018-10-27] MEDS ORDERED: RANITIDINE HCL 150 MG TABLET (FP) PO PRN (11:14)
[2018-10-27] MEDS ORDERED: CHOLECALCIFEROL PO SCH (11:15)
[2018-10-27] MEDS ORDERED: ALBUTEROL SO4 2.5/IPRATROPIUM 0.5 INH SOL 3 ML VIAL.NEB. NEB PRN (11:17)
[2018-10-27] MEDS ORDERED: AZITHROMYCIN IVPB 500 MG/250 ML BAG IVPB ONE (11:17)
[2018-10-27] MEDS: ALBUTEROL SO4 2.5/IPRATROPIUM 0.5 INH SOL 3 ML VIAL.NEB. NEB SCH ×3 (11:40→20:22)
--- NOTE | 2018-10-27 12:31 | CON.PULM ---
Consult Consult Specialty:: PULMONARY Referred by:: PIPPA Reason for Consultation:: SOB/COUGH/FEVER - History of Present Illness Chief Complaint: SOB/COUGH/FEVER History of Present Illness: 58 yo F history HTN, HPL, HIV (last CD4 238 at [facility]) presents with SOB for past 6 days. She was evaluated in this ED with labs, CXR, CTA negative for PE/pna/effusion. She was prescribed steroids, inhaler, and azithromycin, which she did not yet fill at the pharmacy. She then presented to [facility], had a similar workup, but at that point, she had more sob with exertion as per patient. They recommended admission, however, she prefers this hospital as she follows at the [facility], so she signed out AMA. Presents back to ER for admission. 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 No: AFIB Pulmonary: No: O2 Dependent, Pneumonia Gastrointestinal: No: Ascites Hepatobiliary: No: Cirrhosis Renal/: No: Renal Failure Reproductive: Yes: Postmenopausal Infectious Disease: Yes: HIV, Other (genital herpes) Psych: No: Addictions - Alcohol/Substance Use Hx Alcohol Use: No - Smoking History Smoking history: Former smoker Have you smoked in the past 12 months: No - Social History ADL: Support Services Place of : [facility] History of Recent Travel: No Home Medications - Allergies Allergies/Adverse Reactions: Allergies Allergy/AdvReac Type Severity Reaction Status Date / Time No Known Allergies Allergy Verified 10/27/18 07:31 - Home Medications Home Medications: Ambulatory Orders Abacavir/Dolutegravir/Lamivudi [Triumeq 600-50-300 mg Tablet] 1 each PO DAILY # 30 tablet 10/16/18 Aspirin [Aspirin EC] 1 tab PO DAILY #30 tablet. 10/16/18 Atorvastatin Ca [Lipitor] 1 tab PO DAILY #30 tablet 10/16/18 Blood Pressure Test Kit [Blood Pressure Kit] 1 each ASDIR #1 kit 10/16/18 Gabapentin [Neurontin -] 1 tab PO HS #30 capsule 10/16/18 Multivitamin,Therapeutic [Thera] 1 each PO DAILY #30 tablet 10/16/18 [place]-3 Fatty Acids [[place]-3] 1,000 mg PO BID #60 capsule 10/16/18 Ranitidine [Zantac -] 150 mg PO DAILY PRN #30 tablet MDD 1 10/16/18 Tenofovir Disoproxil Fumarate [Viread -] 300 mg PO DAILY #30 tablet 10/16/18 Triamcinolone 0.1% Ointment [Aristocort 0.1% Ointment -] 1 applic TP BID #1 tube 10/16/18 Valacyclovir HCl [Valtrex -] 500 mg PO BID #10 tablet 10/16/18 Cholecalciferol (Vitamin D3) [D3-50] 1 cap PO WEEKLY #4 capsule 10/18/18 Ibuprofen 1 tab PO BID PRN #30 tablet MDD 2 10/18/18 Guaifenesin Dm [Robitussin Dm -] 10 ml PO Q6H #1 bottle 10/23/18 Azithromycin [Zithromax 250mg Tablets -] 250 mg PO UTDICT #6 tab 10/26/18 Methylprednisolone [Medrol Dose Adolfo] 4 mg PO ASDIR #21 tablet 10/26/18 Family Disease History - Family Disease History Family Disease History: Diabetes: Mother, Other: Grandparent (alzheimers), Father Review of Systems - Review of Systems Constitutional: reports: Fever Eyes: denies: Blurred Vision HENT: denies: Difficult Swallowing Neck: denies: Decreased ROM Cardiovascular: denies: Chest Pain Respiratory: reports: Cough, Exercise Intolerance, SOB on Exertion. denies: Hemoptysis, Orthopnea, Wheezing Gastrointestinal: denies: Abdominal Pain Genitourinary: denies: Burning Physical Exam Vital Sings: Vital Signs Temperature 99.3 F 10/27/18 09:47 Pulse Rate 93 H 10/27/18 10:48 Respiratory Rate 18 10/27/18 10:48 Blood Pressure 150/78 10/27/18 10:48 O2 Sat by Pulse Oximetry (%) 98 10/27/18 10:48 Constitutional: Yes: Calm Eyes: Yes: EOM Intact HENT: Yes: Normocephalic Neck: Yes: Trachea Midline Cardiovascular: Yes: Regular Rate and Rhythm, S1, S2 Respiratory: Yes: CTA Bilaterally Gastrointestinal: Yes: Normal Bowel Sounds, Soft Edema: No Labs: CBC, BMP 10/27/18 07:36 10/27/18 07:36 Imaging - Results Chest X-ray: Report Reviewed, Image Reviewed Cat Scan: Report Reviewed, Image Reviewed Problem List - Problems (1) BISHOP (dyspnea on exertion) Code(s): R06.09 - OTHER FORMS OF DYSPNEA (2) Fever Code(s): R50.9 - FEVER, UNSPECIFIED (3) HTN (hypertension) Code(s): I10 - ESSENTIAL (PRIMARY) HYPERTENSION (4) History of HIV infection Code(s): B20 - HUMAN IMMUNODEFICIENCY VIRUS [HIV] DISEASE (5) Hyperlipidemia Code(s): E78.5 - HYPERLIPIDEMIA, UNSPECIFIED (6) Cough Code(s): R05 - COUGH (7) URI with cough and congestion Code(s): J06.9 - ACUTE UPPER RESPIRATORY INFECTION, UNSPECIFIED Assessment/Plan LIKELY ACUTE BRONCHITIS SUPERIMPOSED UPON COPD HIV HTN/HPL AGREE WITH DUONEB/ANTIBIOTICS/WOULD HOLD SYSTEMIC STEROIDS FOR NOW WILL NEED SPO2 PRE/POST AMB ON R/A TO DETERMINE POSSIBLE NEED FOR SHORT TERM HOME O2 Delores GUERRERO MD
[2018-10-27 12:54] VITALS: BMI 35.4
[2018-10-27] MEDS: guaiFENesin/D-METHORPHAN HB 10 ML UNIT-DOSE CUPS PO SCH ×2 (12:57→18:48)
[2018-10-27] MEDS ORDERED: CEFTRIAXONE 1 GM in DEXTROSE 5%-WATER - 100 ML IVPB SCH (13:15)
--- NOTE | 2018-10-27 13:17 | CON.ID ---
Consult Consult Specialty:: infectious diseases Referred by:: hospitalist Reason for Consultation:: fever,cough - History of Present Illness Chief Complaint: cough,weakness History of Present Illness: 58 yo F history HTN, HPL, HIV (last CD4 238 at [facility]) presents with SOB for past 6 days. She was evaluated in this ED with labs, CXR, CTA negative for PE/pna/effusion. She was prescribed steroids, inhaler, and azithromycin, which she did not yet fill at the pharmacy. She then presented to [facility], had a similar workup, but at that point, she had more sob with exertion as per patient. They recommended admission, however, she prefers this hospital as she follows at the [facility], so she signed out AMA. Presents back to ER for admission. 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 No: AFIB Pulmonary: No: O2 Dependent, Pneumonia Gastrointestinal: No: Ascites Hepatobiliary: No: Cirrhosis Renal/: No: Renal Failure Infectious Disease: Yes: HIV, Other (genital herpes) Psych: No: Addictions - Alcohol/Substance Use Hx Alcohol Use: No - Smoking History Smoking history: Former smoker Have you smoked in the past 12 months: No - Social History ADL: Support Services History of Recent Travel: No Home Medications - Allergies Allergies/Adverse Reactions: Allergies Allergy/AdvReac Type Severity Reaction Status Date / Time No Known Allergies Allergy Verified 10/27/18 07:31 - Home Medications Home Medications: Ambulatory Orders Abacavir/Dolutegravir/Lamivudi [Triumeq 600-50-300 mg Tablet] 1 each PO DAILY # 30 tablet 10/16/18 Aspirin [Aspirin EC] 1 tab PO DAILY #30 tablet. 10/16/18 Atorvastatin Ca [Lipitor] 1 tab PO DAILY #30 tablet 10/16/18 Blood Pressure Test Kit [Blood Pressure Kit] 1 each ASDIR #1 kit 10/16/18 Gabapentin [Neurontin -] 1 tab PO HS #30 capsule 10/16/18 Multivitamin,Therapeutic [Thera] 1 each PO DAILY #30 tablet 10/16/18 [place]-3 Fatty Acids [[place]-3] 1,000 mg PO BID #60 capsule 10/16/18 Ranitidine [Zantac -] 150 mg PO DAILY PRN #30 tablet MDD 1 10/16/18 Tenofovir Disoproxil Fumarate [Viread -] 300 mg PO DAILY #30 tablet 10/16/18 Triamcinolone 0.1% Ointment [Aristocort 0.1% Ointment -] 1 applic TP BID #1 tube 10/16/18 Valacyclovir HCl [Valtrex -] 500 mg PO BID #10 tablet 10/16/18 Cholecalciferol (Vitamin D3) [D3-50] 1 cap PO WEEKLY #4 capsule 10/18/18 Ibuprofen 1 tab PO BID PRN #30 tablet MDD 2 10/18/18 Guaifenesin Dm [Robitussin Dm -] 10 ml PO Q6H #1 bottle 10/23/18 Azithromycin [Zithromax 250mg Tablets -] 250 mg PO UTDICT #6 tab 10/26/18 Methylprednisolone [Medrol Dose Adolfo] 4 mg PO ASDIR #21 tablet 10/26/18 Family Disease History - Family Disease History Family Disease History: Diabetes: Mother, Other: Grandparent (alzheimers), Father Review of Systems - Review of Systems Constitutional: reports: Weakness Eyes: reports: No Symptoms HENT: reports: No Symptoms Neck: reports: No Symptoms Cardiovascular: reports: No Symptoms Respiratory: reports: Cough, SOB Gastrointestinal: reports: No Symptoms Genitourinary: reports: No Symptoms Musculoskeletal: reports: No Symptoms Neurological: reports: No Symptoms Endocrine: reports: No Symptoms Hematology/Lymphatic: reports: No Symptoms Psychiatric: reports: No Symptoms Physical Exam Vital Signs: Vital Signs Temperature 99.3 F 10/27/18 09:47 Pulse Rate 93 H 10/27/18 10:48 Respiratory Rate 18 10/27/18 10:48 Blood Pressure 150/78 10/27/18 10:48 O2 Sat by Pulse Oximetry (%) 98 10/27/18 10:48 Constitutional: Yes: Well Nourished, Calm, Mild Distress Cardiovascular: Yes: Regular Rate and Rhythm Respiratory: Yes: Regular, CTA Bilaterally Gastrointestinal: Yes: Normal Bowel Sounds, Soft Musculoskeletal: Yes: WNL Extremities: Yes: WNL Neurological: Yes: Alert, Oriented Psychiatric: Yes: Alert, Oriented Labs: CBC, BMP 10/27/18 07:36 10/27/18 07:36 Imaging - Results Chest X-ray: Report Reviewed, Image Reviewed Cat Scan: Report Reviewed, Image Reviewed Assessment/Plan Problem List - Problems (1) BISHOP (dyspnea on exertion) Code(s): R06.09 - OTHER FORMS OF DYSPNEA (2) Fever Code(s): R50.9 - FEVER, UNSPECIFIED (3) HTN (hypertension) Code(s): I10 - ESSENTIAL (PRIMARY) HYPERTENSION (4) History of HIV infection Code(s): B20 - HUMAN IMMUNODEFICIENCY VIRUS [HIV] DISEASE (5) Hyperlipidemia Code(s): E78.5 - HYPERLIPIDEMIA, UNSPECIFIED (6) Cough Code(s): R05 - COUGH (7) URI with cough and congestion Code(s): J06.9 - ACUTE UPPER RESPIRATORY INFECTION, UNSPECIFIED patient with the above symptoms looks like bronchitis will continue oral zithro for 5 days and monitor if she spikes again will add ceftriaxone incentive osvaldo rest as per the team
--- NOTE | 2018-10-27 13:32 | EKG ---
Test Reason : Blood Pressure : / mmHG Vent. Rate : 107 BPM Atrial Rate : 107 BPM P-R Int : 172 ms QRS Dur : 088 ms QT Int : 334 ms P-R-T Axes : 000 045 000 degrees QTc Int : 445 ms SINUS TACHYCARDIA MINIMAL VOLTAGE CRITERIA FOR LVH, MAY BE NORMAL VARIANT NONSPECIFIC T WAVE ABNORMALITY ABNORMAL ECG WHEN COMPARED WITH ECG OF 25-OCT-2018 19:34, NONSPECIFIC T WAVE ABNORMALITY, WORSE IN INFERIOR LEADS Confirmed by SHARRI BLAND MD ([id number]) on 10/27/2018 1:32:45 PM Referred By: Confirmed By:SHARRI BLAND MD
[2018-10-27] MEDS: AZITHROMYCIN 500 MG TABLET PO SCH (14:10)
[2018-10-27] MEDS ORDERED: ERGOCALCIFEROL (VIT D2) 50,000 UNIT (1.25 MG) CAPSULE PO SCH (15:00)
[2018-10-27] MEDS ORDERED: PT OWN MED DRAWER 7, Y5N ONE ×2 (17:17→21:01)
[2018-10-27] MEDS: GABAPENTIN 300 MG CAPSULE (FP) PO SCH (21:15)
[2018-10-27] MEDS: valACYclovir HCL 500 MG TABLET (FP) PO SCH (21:15)
[2018-10-27] MEDS: TRIAMCINOLONE ACET 0.1% OINT 15 GM TUBE TP SCH (21:15)
[2018-10-28] MEDS: ALBUTEROL SO4 2.5/IPRATROPIUM 0.5 INH SOL 3 ML VIAL.NEB. NEB SCH ×6 (00:18→21:26)
[2018-10-28] MEDS: guaiFENesin/D-METHORPHAN HB 10 ML UNIT-DOSE CUPS PO SCH ×4 (03:00→17:47)
[2018-10-28 04:09] LABS: EPI CELLS 0.6 /HPF (0-5/HPF); HYALINE CASTS 0 /lpf (0-8); PH,URINE 7.5 (5.0-8.0); URINE APPEARANCE CLEAR; URINE BACTERIA 21.8 /hpf (NEGATIVE); URINE BILIRUBIN NEGATIVE (NEGATIVE); URINE COLOR YELLOW; URINE GLUCOSE (UA) NEGATIVE (NEGATIVE); URINE KETONE NEGATIVE (NEGATIVE); URINE LEUK ESTERASE 2+ (NEGATIVE); URINE NITRITE NEGATIVE (NEGATIVE); URINE PROTEIN NEGATIVE (NEGATIVE); URINE RBC 0 /hpf (0-4); URINE WBC 2 /hpf (0-5)
[2018-10-28 07:42] LABS: HEMOGLOBIN 11.1 GM/dL (10.7-15.3); MCH 30.8 pg (25.7-33.7); MCHC 34.7 g/dl (32.0-36.0); MEAN CELL VOLUME 88.8 fl (80-96); MEAN PLT VOLUME 9.7 fl (7.5-11.1); PLATELET COUNT 144 K/MM3 (134-434); RDW 13.2 % (11.6-15.6); WHITE BLOOD COUNT 3.5 K/mm3 (4.0-10.0)
[2018-10-28 08:07] LABS: ALBUMIN 3.1 g/dl (3.4-5.0); BILIRUBIN,TOTAL 0.9 mg/dL (0.2-1); BLOOD UREA NITROGEN 5.4 mg/dL (7-18); CALCIUM 8.5 mg/dL (8.5-10.1); CREATININE 0.7 mg/dL (0.55-1.3); MAGNESIUM 2.6 mg/dL (1.8-2.4); POTASSIUM 3.5 mmol/L (3.5-5.1); TOT PROT 7.8 g/dl (6.4-8.2)
--- NOTE | 2018-10-28 10:17 | PN ---
Physical Exam: SUBJECTIVE: Patient seen and examined Her breathing is better but still have shortness of berth She has no fever and she is seen by pulmonary and ID and no new recommendation were added OBJECTIVE: Vital Signs Period Temp Pulse Resp BP Sys/Qureshi Pulse Ox Last 24 Hr 98.5 F-99.5 F 86-100 18- 126-150/72-98 96-98 GENERAL: The patient is awake, alert, and fully oriented, in no acute distress. HEAD: Normal with no signs of trauma. EYES: PERRL, extraocular movements intact, sclera anicteric, conjunctiva clear. No ptosis. ENT: Ears normal, nares patent, oropharynx clear without exudates, moist mucous membranes. NECK: Trachea midline, full range of motion, supple. LUNGS:paul mild coarse bs HEART: Regular rate and rhythm, S1, S2 without murmur, rub or gallop. ABDOMEN: Soft, nontender, nondistended, normoactive bowel sounds, no guarding, no rebound, no hepatosplenomegaly, no masses. EXTREMITIES: 2+ pulses, warm, well-perfused, no edema. NEUROLOGICAL: Cranial nerves II through XII grossly intact. Normal speech, gait not observed. PSYCH: Normal mood, normal affect. SKIN: Warm, dry, normal turgor, no rashes or lesions noted Laboratory Results - last 24 hr 10/28/18 10/28/18 10/28/18 00:00 06:55 06:55 WBC 3.5 L RBC 3.60 Hgb 11.1 Hct 32.0 L MCV 88.8 MCH 30.8 MCHC 34.7 RDW 13.2 Plt Count 144 MPV 9.7 Absolute Neuts (auto) 1.3 L Neutrophils % No Result Required. Lymphocytes % No Result Required. Nucleated RBC % 0 Sodium 140 Potassium 3.5 Chloride 105 Carbon Dioxide 29 Anion Gap 6 L BUN 5.4 L Creatinine 0.7 Est GFR (CKD-EPI)AfAm 110.69 Est GFR (CKD-EPI)NonAf 95.50 Random Glucose 117 H Calcium 8.5 Magnesium 2.6 H Total Bilirubin 0.9 AST 17 ALT 13 Alkaline Phosphatase 72 Total Protein 7.8 Albumin 3.1 L Urine Color Yellow Urine Appearance Clear Urine pH 7.5 D Ur Specific [place] 1.009 L Urine Protein Negative Urine Glucose (UA) Negative Urine Ketones Negative Urine Blood Negative Urine Nitrite Negative Urine Bilirubin Negative Urine Urobilinogen 1.0 Ur Leukocyte Esterase 2+ H Urine WBC (Auto) 2 Urine RBC (Auto) 0 Urine Casts (Auto) 0 U Epithel Cells (Auto) 0.6 Urine Bacteria (Auto) 21.8 Active Medications Generic Name Dose Route Start Last Admin Trade Name Freq PRN Reason Stop Dose Admin Abacavir/Dolutegravir/Lamivudine 1 each 10/28/18 10:00 Triumeq (Non-Formulary) PO DAILY JENNY Albuterol/Ipratropium 1 amp 10/27/18 12:45 10/28/18 09:30 Duoneb - NEB 1 amp Q4H JENNY Administration Aspirin 81 mg 10/28/18 10:00 Ecotrin - PO DAILY JENNY Atorvastatin Calcium 10 mg 10/28/18 10:00 Lipitor - PO DAILY JENNY Azithromycin 500 mg 10/27/18 13:15 10/27/18 14:10 Zithromax PO 10/29/18 10:01 Not Given DAILY JENNY Ergocalciferol 50,000 unit 10/27/18 15:00 10/27/18 18:48 Drisdol - PO 50,000 unit Q7D JENNY Administration Gabapentin 300 mg 10/27/18 22:00 10/27/18 21:15 Neurontin - PO 300 mg HS JENNY Administration Guaifenesin 10 ml 10/27/18 11:15 10/28/18 06:18 Robitussin Dm - PO 10 ml Q6H JENNY Administration Multivitamins/Minerals 1 each 10/28/18 10:00 Theragran-M PO DAILY JENNY Ranitidine HCl 150 mg 10/27/18 11:14 Zantac - PO DAILY PRN DYSPEPSIA Tenofovir Disoproxil Fumarate 300 mg 10/28/18 10:00 Viread - PO DAILY JENNY Triamcinolone Acetonide 1 applic 10/27/18 22:00 10/27/18 21:15 Aristocort 0.1% Ointment - TP 1 applic BID JENNY Administration Valacyclovir HCl 500 mg 10/27/18 22:00 10/27/18 21:15 Valtrex - PO 500 mg BID JENNY Administration ASSESSMENT/PLAN: 8 year old female with PMH HTN, HLD, HIV (CD4 200s, on HAART, follows at [facility]) presented to ED for shortness-report to ED physician x6 days, CTA done and neagtive CTA was repeated which she reported as normal, but was admitted for BISHOP. Plan will continue the nebulizer and abx even though her cxr is clear will stop rocephin continue zithromax renew hte hiv meds and all prophylactic mds add symbicort bid Current Medications Abacavir/Dolutegravir/Lamivudine (Triumeq (Non-Formulary)) 1 each PO DAILY [facility] Albuterol/Ipratropium (Duoneb -) 1 amp NEB Q4H [facility] Last Admin: 10/28/18 09:30 Dose: 1 amp Aspirin (Ecotrin -) 81 mg PO DAILY JENNY Atorvastatin Calcium (Lipitor -) 10 mg PO DAILY [facility] Azithromycin (Zithromax) 500 mg PO DAILY [facility] Stop: 10/29/18 10:01 Last Admin: 10/27/18 14:10 Dose: Not Given Ergocalciferol (Drisdol -) 50,000 unit PO Q7D [facility] Last Admin: 10/27/18 18:48 Dose: 50,000 unit Gabapentin (Neurontin -) 300 mg PO HS [facility] Last Admin: 10/27/18 21:15 Dose: 300 mg Guaifenesin (Robitussin Dm -) 10 ml PO Q6H [facility] Last Admin: 10/28/18 06:18 Dose: 10 ml Multivitamins/Minerals (Theragran-M) 1 each PO DAILY [facility] Ranitidine HCl (Zantac -) 150 mg PO DAILY PRN PRN Reason: DYSPEPSIA Tenofovir Disoproxil Fumarate (Viread -) 300 mg PO DAILY [facility] Triamcinolone Acetonide (Aristocort 0.1% Ointment -) 1 applic TP BID [facility] Last Admin: 10/27/18 21:15 Dose: 1 applic Valacyclovir HCl (Valtrex -) 500 mg PO BID [facility] Last Admin: 10/27/18 21:15 Dose: 500 mg Visit type - Emergency Visit Emergency Visit: Yes ED Registration Date: 10/27/18 Care time: The patient presented to the Emergency Department on the above date and was hospitalized for further evaluation of their emergent condition. - New Patient This patient is new to me today: Yes Date on this admission: 10/28/18 - Critical Care Critical Care patient: No - Discharge Referral Referred to [facility] No
[2018-10-28 10:31] LABS: ANISOCYTOSIS 0; MACROCYTOSIS 0; PLATELET ESTIMATE DECREASED
[2018-10-28] MEDS: BUDESONIDE/FORMETEROL FUMARATE 160/4.5 mcg INHALER IH SCH ×2 (11:52→22:08)
[2018-10-28] MEDS: TRIAMCINOLONE ACET 0.1% OINT 15 GM TUBE TP SCH ×2 (11:53→22:09)
[2018-10-28] MEDS: ATORVASTATIN CA 10 MG TABLET (FP) PO SCH (11:54)
[2018-10-28] MEDS: ASPIRIN COATED 81 MG TABLET.EC PO SCH (11:54)
[2018-10-28] MEDS: MULTIVITAMINS THER W-MINERALS COMBO TABLET (FP) PO SCH (11:54)
[2018-10-28] MEDS: TENOFOVIR DISOPROXIL FUMARATE 300 MG TABLET PO SCH (11:55)
[2018-10-28] MEDS: ABACAVIR/DOLUTEGRAVIR/LAMIVUDI (TRIUMEQ) TABLET -NF PO SCH (11:56)
--- NOTE | 2018-10-28 11:56 | PN ---
Progress Note (short form) - Note Progress Note: Breathing feels a little better today. Was apparently wheezing this AM. No CP. Intake & Output 10/25/18 10/26/18 10/27/18 10/28/18 23:59 23:59 23:59 23:59 Intake Total 240 250 Output Total 350 Balance -110 250 Weight 226 lb 3 oz Last Vital Signs Temp Pulse Resp BP Pulse Ox 98.7 F 86 20 126/72 96 10/28/18 07:42 10/28/18 07:42 10/28/18 07:42 10/28/18 07:42 10/27/18 21:00 Active Medications Abacavir/Dolutegravir/Lamivudine (Triumeq (Non-Formulary)) 1 each PO DAILY [facility] Albuterol/Ipratropium (Duoneb -) 1 amp NEB Q4H [facility] Last Admin: 10/28/18 09:30 Dose: 1 amp Aspirin (Ecotrin -) 81 mg PO DAILY [facility] Atorvastatin Calcium (Lipitor -) 10 mg PO DAILY [facility] Azithromycin (Zithromax) 500 mg PO DAILY [facility] Stop: 10/29/18 10:01 Last Admin: 10/27/18 14:10 Dose: Not Given Budesonide/Formoterol Fumarate (Symbicort 160/4.5mcg -) 2 puff IH BID [facility] Ergocalciferol (Drisdol -) 50,000 unit PO Q7D [facility] Last Admin: 10/27/18 18:48 Dose: 50,000 unit Gabapentin (Neurontin -) 300 mg PO HS [facility] Last Admin: 10/27/18 21:15 Dose: 300 mg Guaifenesin (Robitussin Dm -) 10 ml PO Q6H [facility] Last Admin: 10/28/18 06:18 Dose: 10 ml Multivitamins/Minerals (Theragran-M) 1 each PO DAILY [facility] Ranitidine HCl (Zantac -) 150 mg PO DAILY PRN PRN Reason: DYSPEPSIA Tenofovir Disoproxil Fumarate (Viread -) 300 mg PO DAILY [facility] Triamcinolone Acetonide (Aristocort 0.1% Ointment -) 1 applic TP BID [facility] Last Admin: 10/27/18 21:15 Dose: 1 applic Valacyclovir HCl (Valtrex -) 500 mg PO BID [facility] Last Admin: 10/27/18 21:15 Dose: 500 mg Constitutional: Yes: NAD Eyes: Yes: EOM Intact HENT: Yes: Normocephalic Neck: Yes: Trachea Midline Cardiovascular: Yes: Regular Rate and Rhythm, S1, S2 Respiratory: Yes: few scattered rhonchi, no wheeze Gastrointestinal: Yes: Normal Bowel Sounds, Soft Edema: No Labs: Laboratory Results - last 24 hr 10/28/18 10/28/18 10/28/18 00:00 06:55 06:55 WBC 3.5 L RBC 3.60 Hgb 11.1 Hct 32.0 L MCV 88.8 MCH 30.8 MCHC 34.7 RDW 13.2 Plt Count 144 MPV 9.7 Absolute Neuts (auto) 1.3 L Neutrophils % No Result Required. Neutrophils % (Manual) 37.9 L Band Neutrophils % 0.0 Lymphocytes % No Result Required. Lymphocytes % (Manual) 46.3 H Monocytes % (Manual) 4 Eosinophils % (Manual) 3.2 Basophils % (Manual) 1.0 Myelocytes % (Man) 4 H Promyelocytes % (Man) 0 Blast Cells % (Manual) 0 Nucleated RBC % 0 Metamyelocytes 2 Hypochromia 0 Platelet Estimate Decreased Polychromasia 0 Poikilocytosis 0 Anisocytosis 0 Microcytosis 0 Macrocytosis 0 Sodium 140 Potassium 3.5 Chloride 105 Carbon Dioxide 29 Anion Gap 6 L BUN 5.4 L Creatinine 0.7 Est GFR (CKD-EPI)AfAm 110.69 Est GFR (CKD-EPI)NonAf 95.50 Random Glucose 117 H Calcium 8.5 Magnesium 2.6 H Total Bilirubin 0.9 AST 17 ALT 13 Alkaline Phosphatase 72 Total Protein 7.8 Albumin 3.1 L Urine Color Yellow Urine Appearance Clear Urine pH 7.5 D Ur Specific [place] 1.009 L Urine Protein Negative Urine Glucose (UA) Negative Urine Ketones Negative Urine Blood Negative Urine Nitrite Negative Urine Bilirubin Negative Urine Urobilinogen 1.0 Ur Leukocyte Esterase 2+ H Urine WBC (Auto) 2 Urine RBC (Auto) 0 Urine Casts (Auto) 0 U Epithel Cells (Auto) 0.6 Urine Bacteria (Auto) 21.8 Problem List - Problems (1) BISHOP (dyspnea on exertion) Code(s): R06.09 - OTHER FORMS OF DYSPNEA (2) Fever Code(s): R50.9 - FEVER, UNSPECIFIED (3) HTN (hypertension) Code(s): I10 - ESSENTIAL (PRIMARY) HYPERTENSION (4) History of HIV infection Code(s): B20 - HUMAN IMMUNODEFICIENCY VIRUS [HIV] DISEASE (5) Hyperlipidemia Code(s): E78.5 - HYPERLIPIDEMIA, UNSPECIFIED (6) Cough Code(s): R05 - COUGH (7) URI with cough and congestion Code(s): J06.9 - ACUTE UPPER RESPIRATORY INFECTION, UNSPECIFIED Assessment/Plan ACUTE BRONCHITIS SUPERIMPOSED UPON COPD HIV HTN/HPL SHORT COURSE OF PREDNISONE O2 NEEDED NO SMOKING BD TX OUTPATIENT PFTS WILL NEED SPO2 PRE/POST AMB ON R/A TO DETERMINE POSSIBLE NEED FOR SHORT TERM HOME O2 ON D/C: LAMA/LABA COMBINATION DR SARITHA GUERRERO MD
[2018-10-28] MEDS: AZITHROMYCIN 500 MG TABLET PO SCH (11:57)
[2018-10-28] MEDS: valACYclovir HCL 500 MG TABLET (FP) PO SCH ×2 (11:57→23:34)
[2018-10-28] MEDS: predniSONE 20 MG TABLET (UD) PO SCH (12:59)
[2018-10-28] MEDS: IBUPROFEN 600 MG TABLET (FP) PO PRN (13:00)
--- NOTE | 2018-10-28 17:37 | PN ---
Progress Note, Physician History of Present Illness: Pt seen, events noted. She states she is less SOB, feeling better. Still with cough but afebrile today. No other complaints. - Current Medication List Current Medications: Active Medications Abacavir/Dolutegravir/Lamivudine (Triumeq (Non-Formulary)) 1 each PO DAILY [facility] Last Admin: 10/28/18 11:56 Dose: 1 each Albuterol/Ipratropium (Duoneb -) 1 amp NEB Q4H [facility] Last Admin: 10/28/18 17:03 Dose: 1 amp Aspirin (Ecotrin -) 81 mg PO DAILY [facility] Last Admin: 10/28/18 11:54 Dose: 81 mg Atorvastatin Calcium (Lipitor -) 10 mg PO DAILY [facility] Last Admin: 10/28/18 11:54 Dose: 10 mg Azithromycin (Zithromax) 500 mg PO DAILY [facility] Stop: 10/29/18 10:01 Last Admin: 10/28/18 11:57 Dose: 500 mg Budesonide/Formoterol Fumarate (Symbicort 160/4.5mcg -) 2 puff IH BID [facility] Last Admin: 10/28/18 11:52 Dose: 2 inh Ergocalciferol (Drisdol -) 50,000 unit PO Q7D [facility] Last Admin: 10/27/18 18:48 Dose: 50,000 unit Gabapentin (Neurontin -) 300 mg PO HS [facility] Last Admin: 10/27/18 21:15 Dose: 300 mg Guaifenesin (Robitussin Dm -) 10 ml PO Q6H [facility] Last Admin: 10/28/18 11:54 Dose: 10 ml Ibuprofen (Motrin -) 600 mg PO Q6H PRN PRN Reason: FEVER Last Admin: 10/28/18 13:00 Dose: 600 mg Multivitamins/Minerals (Theragran-M) 1 each PO DAILY [facility] Last Admin: 10/28/18 11:54 Dose: 1 each Prednisone (Deltasone -) 40 mg PO DAILY [facility] Last Admin: 10/28/18 12:59 Dose: 40 mg Ranitidine HCl (Zantac -) 150 mg PO DAILY PRN PRN Reason: DYSPEPSIA Tenofovir Disoproxil Fumarate (Viread -) 300 mg PO DAILY [facility] Last Admin: 10/28/18 11:55 Dose: 300 mg Triamcinolone Acetonide (Aristocort 0.1% Ointment -) 1 applic TP BID [facility] Last Admin: 10/28/18 11:53 Dose: 1 applic Valacyclovir HCl (Valtrex -) 500 mg PO BID [facility] Last Admin: 10/28/18 11:57 Dose: 500 mg - Objective Vital Signs: Vital Signs Temperature 98.7 F 10/28/18 07:42 Pulse Rate 118 H 10/28/18 13:15 Respiratory Rate 18 10/28/18 11:00 Blood Pressure 145/90 10/28/18 11:00 O2 Sat by Pulse Oximetry (%) 98 10/28/18 13:15 Constitutional: Yes: No Distress, Calm Neck: Yes: Supple Cardiovascular: Yes: Regular Rate and Rhythm Respiratory: Yes: CTA Bilaterally Gastrointestinal: Yes: Normal Bowel Sounds, Soft Genitourinary: Yes: WNL Integumentary: Yes: WNL Neurological: Yes: Alert, Oriented Labs: CBC, BMP 10/28/18 06:55 10/28/18 06:55 INR, PTT INR 1.08 (0.83-1.09) 10/27/18 07:36 Microbiology 10/27/18 09:04 Blood - Peripheral Venous Blood Culture - Preliminary NO GROWTH OBTAINED AFTER 24 HOURS, INCUBATION TO CONTINUE FOR 4 DAYS. 10/27/18 09:06 Blood - Peripheral Venous Blood Culture - Preliminary NO GROWTH OBTAINED AFTER 24 HOURS, INCUBATION TO CONTINUE FOR 4 DAYS. - ....Imaging Chest X-ray: Report Reviewed Problem List - Problems (1) BISHOP (dyspnea on exertion) Code(s): R06.09 - OTHER FORMS OF DYSPNEA (2) Fever Code(s): R50.9 - FEVER, UNSPECIFIED (3) HTN (hypertension) Code(s): I10 - ESSENTIAL (PRIMARY) HYPERTENSION (4) History of HIV infection Code(s): B20 - HUMAN IMMUNODEFICIENCY VIRUS [HIV] DISEASE (5) Hyperlipidemia Code(s): E78.5 - HYPERLIPIDEMIA, UNSPECIFIED Assessment/Plan Acute Bronchitis HIV on HAART COPD HTN HLD -- continue Zithromax -- on BD, steroids -- continue monitor temps, trending down
[2018-10-28] MEDS ORDERED: PT OWN MED DRAWER 7, Y5N ONE (21:21)
[2018-10-28] MEDS: GABAPENTIN 300 MG CAPSULE (FP) PO SCH (22:09)
[2018-10-29] MEDS: guaiFENesin/D-METHORPHAN HB 10 ML UNIT-DOSE CUPS PO SCH ×3 (00:16→11:45)
[2018-10-29] MEDS: IBUPROFEN 600 MG TABLET (FP) PO PRN (00:17)
[2018-10-29] MEDS: ALBUTEROL SO4 2.5/IPRATROPIUM 0.5 INH SOL 3 ML VIAL.NEB. NEB SCH ×5 (01:25→17:12)
[2018-10-29 08:11] LABS: BASO % 0.2 % (0-2.0); EOS % 0.7 % (0-4.5); HEMATOCRIT 32.7 % (32.4-45.2); HEMOGLOBIN 11.4 GM/dL (10.7-15.3); LYMPH % 45.1 % (8-40); MCH 30.6 pg (25.7-33.7); MCHC 34.7 g/dl (32.0-36.0); MEAN CELL VOLUME 88.1 fl (80-96); MEAN PLT VOLUME 9.4 fl (7.5-11.1); MONO % 9.6 % (3.8-10.2); NEUT % 44.4 % (42.8-82.8); PLATELET COUNT 159 K/MM3 (134-434); RBC 3.71 M/mm3 (3.60-5.2); WHITE BLOOD COUNT 4.6 K/mm3 (4.0-10.0)
[2018-10-29 08:39] LABS: ALBUMIN 3.2 g/dl (3.4-5.0); BILIRUBIN,TOTAL 0.6 mg/dL (0.2-1); BLOOD UREA NITROGEN 5.5 mg/dL (7-18); CALCIUM 8.8 mg/dL (8.5-10.1); CREATININE 0.7 mg/dL (0.55-1.3); MAGNESIUM 2.5 mg/dL (1.8-2.4); POTASSIUM 3.5 mmol/L (3.5-5.1)
--- NOTE | 2018-10-29 11:01 | PN ---
Progress Note (short form) - Note Progress Note: Breathing feels better today. Feels back to her baseline. Intake & Output 10/26/18 10/27/18 10/28/18 10/29/18 23:59 23:59 23:59 23:59 Intake Total 240 1650 500 Output Total 350 Balance -110 1650 500 Weight 226 lb 3 oz Last Vital Signs Temp Pulse Resp BP Pulse Ox 98 F 70 20 129/74 98 10/29/18 06:37 10/29/18 06:37 10/29/18 06:37 10/29/18 06:37 10/28/18 13:15 Active Medications Abacavir/Dolutegravir/Lamivudine (Triumeq (Non-Formulary)) 1 each PO DAILY [facility] Last Admin: 10/28/18 11:56 Dose: 1 each Albuterol/Ipratropium (Duoneb -) 1 amp NEB Q4H [facility] Last Admin: 10/29/18 08:24 Dose: 1 amp Aspirin (Ecotrin -) 81 mg PO DAILY [facility] Last Admin: 10/28/18 11:54 Dose: 81 mg Atorvastatin Calcium (Lipitor -) 10 mg PO DAILY [facility] Last Admin: 10/28/18 11:54 Dose: 10 mg Budesonide/Formoterol Fumarate (Symbicort 160/4.5mcg -) 2 puff IH BID [facility] Last Admin: 10/28/18 22:08 Dose: 2 inh Ergocalciferol (Drisdol -) 50,000 unit PO Q7D [facility] Last Admin: 10/27/18 18:48 Dose: 50,000 unit Gabapentin (Neurontin -) 300 mg PO HS [facility] Last Admin: 10/28/18 22:09 Dose: 300 mg Guaifenesin (Robitussin Dm -) 10 ml PO Q6H [facility] Last Admin: 10/29/18 06:14 Dose: 10 ml Ibuprofen (Motrin -) 600 mg PO Q6H PRN PRN Reason: FEVER Last Admin: 10/29/18 00:17 Dose: 600 mg Multivitamins/Minerals (Theragran-M) 1 each PO DAILY [facility] Last Admin: 10/28/18 11:54 Dose: 1 each Prednisone (Deltasone -) 40 mg PO DAILY [facility] Last Admin: 10/28/18 12:59 Dose: 40 mg Ranitidine HCl (Zantac -) 150 mg PO DAILY PRN PRN Reason: DYSPEPSIA Tenofovir Disoproxil Fumarate (Viread -) 300 mg PO DAILY [facility] Last Admin: 10/28/18 11:55 Dose: 300 mg Triamcinolone Acetonide (Aristocort 0.1% Ointment -) 1 applic TP BID [facility] Last Admin: 10/28/18 22:09 Dose: 1 applic Valacyclovir HCl (Valtrex -) 500 mg PO BID [facility] Last Admin: 10/28/18 23:34 Dose: 500 mg Constitutional: Yes: NAD Eyes: Yes: EOM Intact HENT: Yes: Normocephalic Neck: Yes: Trachea Midline Cardiovascular: Yes: Regular Rate and Rhythm, S1, S2 Respiratory: Yes: few scattered rhonchi, no wheeze Gastrointestinal: Yes: Normal Bowel Sounds, Soft Edema: No Labs: Laboratory Results - last 24 hr 10/29/18 10/29/18 07:45 07:45 WBC 4.6 RBC 3.71 Hgb 11.4 Hct 32.7 MCV 88.1 MCH 30.6 MCHC 34.7 RDW 13.0 Plt Count 159 MPV 9.4 Absolute Neuts (auto) 2.1 Neutrophils % 44.4 D Lymphocytes % 45.1 H D Monocytes % 9.6 Eosinophils % 0.7 Basophils % 0.2 Nucleated RBC % 0 Sodium 141 Potassium 3.5 Chloride 105 Carbon Dioxide 30 Anion Gap 6 L BUN 5.5 L Creatinine 0.7 Est GFR (CKD-EPI)AfAm 110.69 Est GFR (CKD-EPI)NonAf 95.50 Random Glucose 112 H Calcium 8.8 Magnesium 2.5 H Total Bilirubin 0.6 AST 14 L ALT 12 L Alkaline Phosphatase 73 Total Protein 8.0 Albumin 3.2 L Problem List - Problems (1) BISHOP (dyspnea on exertion) Code(s): R06.09 - OTHER FORMS OF DYSPNEA (2) Fever Code(s): R50.9 - FEVER, UNSPECIFIED (3) HTN (hypertension) Code(s): I10 - ESSENTIAL (PRIMARY) HYPERTENSION (4) History of HIV infection Code(s): B20 - HUMAN IMMUNODEFICIENCY VIRUS [HIV] DISEASE (5) Hyperlipidemia Code(s): E78.5 - HYPERLIPIDEMIA, UNSPECIFIED (6) Cough Code(s): R05 - COUGH (7) URI with cough and congestion Code(s): J06.9 - ACUTE UPPER RESPIRATORY INFECTION, UNSPECIFIED Assessment/Plan ACUTE BRONCHITIS SUPERIMPOSED UPON COPD HIV HTN/HPL PREDNISONE O2 NEEDED NO SMOKING BD TX OUTPATIENT PFTS WILL NEED SPO2 PRE/POST AMB ON R/A TO DETERMINE POSSIBLE NEED FOR SHORT TERM HOME O2 ON D/C: [facility]/LABA COMBINATION NO PULMONARY CONTRAINDICATION FOR D/C DR MELARA
[2018-10-29] MEDS: ATORVASTATIN CA 10 MG TABLET (FP) PO SCH (11:45)
[2018-10-29] MEDS: predniSONE 20 MG TABLET (UD) PO SCH (11:46)
[2018-10-29] MEDS: MULTIVITAMINS THER W-MINERALS COMBO TABLET (FP) PO SCH (11:46)
[2018-10-29] MEDS: ASPIRIN COATED 81 MG TABLET.EC PO SCH (11:46)
[2018-10-29] MEDS: TRIAMCINOLONE ACET 0.1% OINT 15 GM TUBE TP SCH (11:48)
[2018-10-29] MEDS: valACYclovir HCL 500 MG TABLET (FP) PO SCH (11:48)
[2018-10-29] MEDS: ABACAVIR/DOLUTEGRAVIR/LAMIVUDI (TRIUMEQ) TABLET -NF PO SCH (11:49)
[2018-10-29] MEDS: BUDESONIDE/FORMETEROL FUMARATE 160/4.5 mcg INHALER IH SCH (11:49)
[2018-10-29] MEDS: TENOFOVIR DISOPROXIL FUMARATE 300 MG TABLET PO SCH (11:50)
[2018-10-29] MEDS: AZITHROMYCIN 500 MG TABLET PO SCH (11:51)
--- NOTE | 2018-10-29 12:19 | DS ---
Physical Examination Vital Signs: Vital Signs Temperature 98 F 10/29/18 06:37 Pulse Rate 70 10/29/18 06:37 Respiratory Rate 20 10/29/18 06:37 Blood Pressure 129/74 10/29/18 06:37 O2 Sat by Pulse Oximetry (%) 98 10/28/18 13:15 Constitutional: Yes: Well Nourished, No Distress, Calm Eyes: Yes: WNL, Conjunctiva Clear, EOM Intact HENT: Yes: WNL, Atraumatic, Normocephalic Neck: Yes: WNL, Supple, Trachea Midline Cardiovascular: Yes: WNL, Regular Rate and Rhythm, S1, S2 Respiratory: Yes: Wheezes Gastrointestinal: Yes: WNL, Normal Bowel Sounds, Soft ...Rectal Exam: Yes: Deferred Renal/: Yes: WNL Musculoskeletal: Yes: WNL Extremities: Yes: WNL Edema: No Peripheral Pulses WNL: Yes Integumentary: Yes: WNL Neurological: Yes: WNL, Alert, Oriented ...Motor Strength: WNL Psychiatric: Yes: WNL, Alert, Oriented Labs: CBC, BMP 10/29/18 07:45 10/29/18 07:45 Discharge Summary Reason For Visit: DYSPNEA,FEVER,HYPOKALEMIA,HIV Current Active Problems BISHOP (dyspnea on exertion) (Acute) Fever (Acute) HTN (hypertension) (Acute) History of HIV infection (Acute) Hyperlipidemia (Acute) Hypokalemia (Acute) Prophylactic measure (Acute) Condition: Stable - Instructions Diet, Activity, Other Instructions: Patient came to the ER for shortness of breath. You were treated with Antibiotics, steroids, and inhaled bronchodilators. You are going to resume your regular home medications with the new addition of Symbicort and Prednisone. - Home Medications Comprehensive Discharge Medication List: Ambulatory Orders Abacavir/Dolutegravir/Lamivudi [Triumeq 600-50-300 mg Tablet] 1 each PO DAILY # 30 tablet 10/16/18 Aspirin [Aspirin EC] 1 tab PO DAILY #30 tablet. 10/16/18 Atorvastatin Ca [Lipitor] 1 tab PO DAILY #30 tablet 10/16/18 Blood Pressure Test Kit [Blood Pressure Kit] 1 each ASDIR #1 kit 10/16/18 Gabapentin [Neurontin -] 1 tab PO HS #30 capsule 10/16/18 Multivitamin,Therapeutic [Thera] 1 each PO DAILY #30 tablet 10/16/18 [place]-3 Fatty Acids [[place]-3] 1,000 mg PO BID #60 capsule 10/16/18 Ranitidine [Zantac -] 150 mg PO DAILY PRN #30 tablet MDD 1 10/16/18 Tenofovir Disoproxil Fumarate [Viread -] 300 mg PO DAILY #30 tablet 10/16/18 Triamcinolone 0.1% Ointment [Aristocort 0.1% Ointment -] 1 applic TP BID #1 tube 10/16/18 Valacyclovir HCl [Valtrex -] 500 mg PO BID #10 tablet 10/16/18 Cholecalciferol (Vitamin D3) [D3-50] 1 cap PO WEEKLY #4 capsule 10/18/18 Ibuprofen 1 tab PO BID PRN #30 tablet MDD 2 10/18/18 Guaifenesin Dm [Robitussin Dm -] 10 ml PO Q6H #1 bottle 10/23/18 Azithromycin [Zithromax 250mg Tablets -] 250 mg PO UTDICT #6 tab 10/26/18 Methylprednisolone [Medrol Dose Adolfo] 4 mg PO ASDIR #21 tablet 10/26/18 This patient is new to me today: Yes Date on this admission: 10/29/18 Emergency Visit: Yes ED Registration Date: 10/27/18 Care time: The patient presented to the Emergency Department on the above date and was hospitalized for further evaluation of their emergent condition. Critical Care patient: No - Discharge Referral Referred to [facility] Med P.C.: No
[2018-10-29 14:37] VITALS: BP 123/85; PULSE 99; TEMP 98.8
--- NOTE | 2018-10-29 16:21 | PN ---
Progress Note, Physician History of Present Illness: Pt is alert, states she feels much better, less cough/nonproductive. No new complaints. - Current Medication List Current Medications: Active Medications Abacavir/Dolutegravir/Lamivudine (Triumeq (Non-Formulary)) 1 each PO DAILY [facility] Last Admin: 10/29/18 11:49 Dose: 1 each Albuterol/Ipratropium (Duoneb -) 1 amp NEB Q4H [facility] Last Admin: 10/29/18 12:30 Dose: 1 amp Aspirin (Ecotrin -) 81 mg PO DAILY [facility] Last Admin: 10/29/18 11:46 Dose: 81 mg Atorvastatin Calcium (Lipitor -) 10 mg PO DAILY [facility] Last Admin: 10/29/18 11:45 Dose: 10 mg Budesonide/Formoterol Fumarate (Symbicort 160/4.5mcg -) 2 puff IH BID [facility] Last Admin: 10/29/18 11:49 Dose: 2 inh Ergocalciferol (Drisdol -) 50,000 unit PO Q7D [facility] Last Admin: 10/27/18 18:48 Dose: 50,000 unit Gabapentin (Neurontin -) 300 mg PO HS [facility] Last Admin: 10/28/18 22:09 Dose: 300 mg Guaifenesin (Robitussin Dm -) 10 ml PO Q6H [facility] Last Admin: 10/29/18 11:45 Dose: 10 ml Ibuprofen (Motrin -) 600 mg PO Q6H PRN PRN Reason: FEVER Last Admin: 10/29/18 00:17 Dose: 600 mg Multivitamins/Minerals (Theragran-M) 1 each PO DAILY [facility] Last Admin: 10/29/18 11:46 Dose: 1 each Prednisone (Deltasone -) 40 mg PO DAILY [facility] Last Admin: 10/29/18 11:46 Dose: 40 mg Ranitidine HCl (Zantac -) 150 mg PO DAILY PRN PRN Reason: DYSPEPSIA Tenofovir Disoproxil Fumarate (Viread -) 300 mg PO DAILY [facility] Last Admin: 10/29/18 11:50 Dose: 300 mg Triamcinolone Acetonide (Aristocort 0.1% Ointment -) 1 applic TP BID [facility] Last Admin: 10/29/18 11:48 Dose: 1 applic Valacyclovir HCl (Valtrex -) 500 mg PO BID [facility] Last Admin: 10/29/18 11:48 Dose: 500 mg - Objective Vital Signs: Vital Signs Temperature 98.8 F 10/29/18 14:36 Pulse Rate 99 H 10/29/18 14:36 Respiratory Rate 18 10/29/18 14:36 Blood Pressure 123/85 10/29/18 14:36 O2 Sat by Pulse Oximetry (%) 98 10/29/18 09:00 Constitutional: Yes: No Distress, Calm Cardiovascular: Yes: Regular Rate and Rhythm Respiratory: Yes: CTA Bilaterally Gastrointestinal: Yes: Normal Bowel Sounds, Soft Genitourinary: Yes: WNL Integumentary: Yes: WNL Neurological: Yes: Alert, Oriented Labs: CBC, BMP 10/29/18 07:45 10/29/18 07:45 INR, PTT INR 1.08 (0.83-1.09) 10/27/18 07:36 - ....Imaging Chest X-ray: Report Reviewed Problem List - Problems (1) BISHOP (dyspnea on exertion) Code(s): R06.09 - OTHER FORMS OF DYSPNEA (2) Fever Code(s): R50.9 - FEVER, UNSPECIFIED (3) HTN (hypertension) Code(s): I10 - ESSENTIAL (PRIMARY) HYPERTENSION (4) History of HIV infection Code(s): B20 - HUMAN IMMUNODEFICIENCY VIRUS [HIV] DISEASE (5) Hyperlipidemia Code(s): E78.5 - HYPERLIPIDEMIA, UNSPECIFIED Assessment/Plan Acute Bronchitis/COPD HIV on HAART COPD HTN HLD -- s/p Azithromycin x 3 days -- for d/c home today pt instructed to return if develops acute SOB/fever/diarrhea
== END 2018-10-29 18:29 | disposition home or self-care (01) | DRG 140 ==
LOC: JER 07:13 → JERBED 09:19 → J8W 11:14 → OBSVTOIN 17:04
PROVIDERS: ADMIT Internal Medicine; ATTEND Nurse Practitioner Acute Care
DX: J44.0 Chronic obstructive pulmonary disease with (acute) lower respiratory infection (principal); J20.9 Acute bronchitis, unspecified; E87.6 Hypokalemia; I10 Essential (primary) hypertension; E78.5 Hyperlipidemia, unspecified; Z21 Asymptomatic human immunodeficiency virus [HIV] infection status; R50.9 Fever, unspecified; R05 Cough; J06.9 Acute upper respiratory infection, unspecified; J44.9 Chronic obstructive pulmonary disease, unspecified; E87.3 Alkalosis
CPT/HCPCS: 36415; 71045-TC-FY; 80053; 81003; 82803; 83735; 83880; 84484; 85025; 85610; 85730; 87040; 87086; 87899; 93005; 93010; 94640; 94761; 99284-25; G0378; J0131; J7030

== ENCOUNTER 2023-06-30 05:39 | Observation (INO) | payer SELFPAY ==
[2023-06-30] MEDS: ALBUTEROL SO4 2.5/IPRATROPIUM 0.5 INH SOL 3 ML VIAL.NEB. NEB SCH (06:15)
[2023-06-30] MEDS ORDERED: ALBUTEROL SO4 2.5/IPRATROPIUM 0.5 INH SOL 3 ML VIAL.NEB. NEB ONE ×2 (06:20→07:08)
[2023-06-30] MEDS ORDERED: methylPREDNISolone NA SUCC 125 MG/2 ML VIAL ONE (06:37)
[2023-06-30] MEDS: methylPREDNISolone NA SUCC 125 MG/2 ML VIAL IVPB ONE (06:47)
[2023-06-30 07:44] LABS: VENOUS BASE EXCESS 2.1 mmol/L (-2-2); VENOUS PCO2 50.9 mmHg (38-52); VENOUS PH 7.365 (7.310-7.410)
[2023-06-30 07:57] LABS: BASO % 0.3 % (0-2.0); EOS % 0.9 % (0-4.5); HEMATOCRIT 36.1 % (32.4-45.2); HEMOGLOBIN 12.6 GM/dL (10.7-15.3); LYMPH % 46.4 % (8-40); MCH 30.6 pg (25.7-33.7); MCHC 34.8 g/dl (32.0-36.0); MEAN CELL VOLUME 88.1 fl (80-96); MEAN PLT VOLUME 10.4 fl (7.5-11.1); NEUT % 38.4 % (42.8-82.8); PLATELET COUNT 149 10^3/uL (134-434); RDW 13.5 % (11.6-15.6); WHITE BLOOD COUNT 5.7 K/mm3 (4.0-10.0)
[2023-06-30] MEDS: ALBUTEROL SO4 0.083% IH SOL 2.5 MG/3 ML VIAL.NEB. NEB ONE (08:10)
[2023-06-30] MEDS ORDERED: ALBUTEROL SO4 0.083% IH SOL 2.5 MG/3 ML VIAL.NEB. NEB ONE (08:11)
[2023-06-30 08:16] LABS: INR 1.03 (0.83-1.09)
[2023-06-30 08:22] LABS: CALCIUM 9.2 mg/dL (8.5-10.1)
[2023-06-30 08:24] LABS: ALBUMIN 3.6 g/dl (3.4-5.0); BLOOD UREA NITROGEN 7.8 mg/dL (7-18); MAGNESIUM 1.9 mg/dL (1.8-2.4)
[2023-06-30 08:26] LABS: CREATININE 0.7 mg/dL (0.55-1.3)
[2023-06-30 08:27] LABS: BILIRUBIN,TOTAL 1.2 mg/dL (0.2-1)
[2023-06-30 08:29] LABS: TOT PROT 8.5 g/dl (6.4-8.2)
[2023-06-30] MEDS ORDERED: POTASSIUM CHLORIDE TABS 20 MEQ TABLET.ER (FP) PO ONE (09:59)
[2023-06-30] MEDS ORDERED: ENOXAPARIN NA (PORCINE) 40 MG/0.4 ML DISP.SYRIN SQ ONE (10:00)
[2023-06-30] MEDS ORDERED: ACETAMINOPHEN 325 MG TABLET (FP) ONE (10:00)
[2023-06-30] MEDS ORDERED: guaiFENesin/CODEINE 10 ML UNIT-DOSE CUPS ONE (10:00)
[2023-06-30] MEDS: POTASSIUM CHLORIDE ORAL LIQUID 20 MEQ/15 ML PO ONE (10:05)
[2023-06-30] MEDS: ENOXAPARIN NA (PORCINE) 40 MG/0.4 ML DISP.SYRIN SQ SCH (10:06)
[2023-06-30] MEDS: ACETAMINOPHEN 325 MG TABLET (FP) PO PRN (10:06)
[2023-06-30] MEDS: guaiFENesin 200 MG/10 ML 10 ML UNIT-DOSE CUPS PO PRN (10:06)
[2023-06-30] MEDS ORDERED: METOPROLOL TARTRATE 25 MG TABLET (FP) PO SCH (11:26)
[2023-06-30] MEDS: ABACAVIR/DOLUTEGRAVIR/LAMIVUDI (TRIUMEQ) TABLET PO SCH (12:35)
[2023-06-30] MEDS: metoPROLOL SUCCINATE 25 MG TAB.SR.24H (FP) PO SCH (12:38)
[2023-06-30 13:03] VITALS: RESP 20; BMI 36.7
[2023-06-30] MEDS: SACUBITRIL/VALSARTAN 24 MG-26 MG TABLET PO SCH (13:56)
[2023-06-30] MEDS: ATORVASTATIN CA 10 MG TABLET (FP) PO SCH (21:58)
[2023-06-30] MEDS: ALBUTEROL SO4 0.083% IH SOL 2.5 MG/3 ML VIAL.NEB. NEB PRN (22:16)
[2023-07-01 08:25] LABS: HEMOGLOBIN 12.6 GM/dL (10.7-15.3); MCH 30.9 pg (25.7-33.7); MCHC 34.9 g/dl (32.0-36.0); MEAN CELL VOLUME 88.3 fl (80-96); MEAN PLT VOLUME 9.8 fl (7.5-11.1); PLATELET COUNT 145 10^3/uL (134-434); RBC 4.08 M/mm3 (3.60-5.2); RDW 13.5 % (11.6-15.6); WHITE BLOOD COUNT 4.8 K/mm3 (4.0-10.0)
[2023-07-01 08:44] LABS: POTASSIUM 3.7 mmol/L (3.5-5.1)
[2023-07-01 08:46] LABS: BLOOD UREA NITROGEN 8.2 mg/dL (7-18); CALCIUM 9.1 mg/dL (8.5-10.1); MAGNESIUM 2.4 mg/dL (1.8-2.4)
[2023-07-01 08:51] LABS: CREATININE 0.7 mg/dL (0.55-1.3); PHOSPHOROUS 2.7 mg/dL (2.5-4.9)
[2023-07-01] MEDS: CITALOPRAM HYDROBROMIDE 20 MG TABLET PO SCH (09:14)
[2023-07-01] MEDS: SULFAMETHOXAZOLE/TRIMETHOPRIM 800MG/160MG D.S. TABLET PO SCH (09:14)
[2023-07-01] MEDS: predniSONE 20 MG TABLET (UD) PO SCH (09:14)
[2023-07-01] MEDS: TENOFOVIR DISOPROXIL FUMARATE 300 MG TABLET PO SCH (09:15)
[2023-07-01 09:20] LABS: BILIRUBIN,DIRECT 0.2 mg/dL (0.0-0.2)
[2023-07-01] MEDS ORDERED: METOPROLOL TARTRATE 25 MG TABLET (FP) PO SCH (10:00)
[2023-07-01 13:34] VITALS: BP 143/84; PULSE 82; TEMP 98.4
== END 2023-07-01 15:31 | disposition home or self-care (01) ==
LOC: JER 05:39 → JERBED 08:01 → J6S 11:32
PROVIDERS: ADMIT Internal Medicine; ATTEND Internal Medicine
PROC: 3E033NZ Introduction of Analgesics, Hypnotics, Sedatives into Peripheral Vein, Percutaneous Approach (ICD-10-PCS; principal; 2023-06-30)
PROC: 3E013GC Introduction of Other Therapeutic Substance into Subcutaneous Tissue, Percutaneous Approach (ICD-10-PCS; 2023-06-30)
PROC: 3E0F7SF Introduction of Other Gas into Respiratory Tract, Via Natural or Artificial Opening (ICD-10-PCS; 2023-06-30)
DX: J20.9 Acute bronchitis, unspecified (principal); R06.09 Other forms of dyspnea; B20 Human immunodeficiency virus [HIV] disease; I11.0 Hypertensive heart disease with heart failure; I50.9 Heart failure, unspecified; Z95.0 Presence of cardiac pacemaker
CPT/HCPCS: 0241U-QW; 36415; 71045-TC-FY; 80048; 80053; 82248; 82803; 83735; 83880; 84100; 84484; 85025; 85027; 85610; 85730; 87040; 93005; 93010; 99285-25; G0378